=== PATIENT | female | born 1935 | race Caucasian/White ===

== ENCOUNTER 2019-06-07 11:44 | Emergency (ER) | payer OTHER ==
[~2019-06-07] VITALS: Ht 162.6 cm; Wt 54.0 kg
[2019-06-07] MEDS ORDERED: LOSARTAN POTAS100 MG (11:59)
[2019-06-07] MEDS ORDERED: PREDNISONE2.5 MG (11:59)
[2019-06-07] MEDS ORDERED: ATORVASTATIN CA10 MG (11:59)
[2019-06-07] MEDS ORDERED: NEXIUM 24HR20 M1 (12:00)
[2019-06-07] MEDS ORDERED: ARICEPT PO (12:00)
== END 2019-06-07 21:28 | disposition home or self-care (01) ==
LOC: ER 11:44
DX: K29.60 Other gastritis without bleeding (principal)

== ENCOUNTER 2020-05-29 06:20 | Day surgery (SDC) | payer OTHER ==
[~2020-05-29 06:20] MED LIST: ARICEPT PO; ATORVASTATIN CA10 MG; ATORVASTATIN CA10 MG PO; LOSARTAN POTAS100 MG; NEXIUM 24HR20 M1; PREDNISONE2.5 MG; TRAZODO PO; ZOLOFT PO
== END 2020-05-29 12:55 | disposition home or self-care (01) ==
LOC: CIR.AMB 06:20
PROVIDERS: ATTEND Anesthesiology Pain Medicine
DX: M51.36 Other intervertebral disc degeneration, lumbar region (principal); M51.37 Other intervertebral disc degeneration, lumbosacral region; Z20.828 Contact with and (suspected) exposure to other viral communicable diseases